=== PATIENT | female | born 1955 | race Caucasian/White ===

== ENCOUNTER 2020-03-17 06:40 | Day surgery (SDC) | payer MEDICARE ==
[~2020-03-17] VITALS: Ht 162.6 cm; Wt 86.4 kg
[~2020-03-17 06:40] MED LIST: SODIUM CHLORIDE 0.9% 1,000 ML ONE
[2020-03-17] MEDS ORDERED: LIDOCAINE 4% 50 ML SOLUTION TP ONE (06:41)
[2020-03-17] MEDS ORDERED: BENZOCAINE 20% 50 MCG/SPRAY 57 GM TP ONE (06:41)
[2020-03-17] MEDS ORDERED: SODIUM CHLORIDE 0.9% 1,000 ML IV ONE (07:00)
[2020-03-17] MEDS ORDERED: ATOR40TA28 PO (07:51)
[2020-03-17] MEDS ORDERED: OMEP20 PO (07:51)
[2020-03-17] MEDS ORDERED: CETI-450 PO (07:51)
[2020-03-17] MEDS ORDERED: MIDAZOLAM HCL 2 MG/2 ML VIAL ONE (08:07)
[2020-03-17] MEDS ORDERED: FentaNYL CITRATE-PF 100 MCG/2 ML VIAL ONE (08:08)
[2020-03-17] MEDS ORDERED: MethylPREDNISolone SOD SUCC 125 MG/2 ML VIAL IVP ONE (08:45)
[2020-03-17] MEDS ORDERED: MethylPREDNISolone SOD SUCC 125 MG/2 ML VIAL ONE (09:11)
[2020-03-17] MEDS ORDERED: OXYGEN THERAPY IH SCH (20:00)
== END 2020-03-17 10:45 | disposition home or self-care (01) ==
LOC: SURGERY 06:40
PROVIDERS: ATTEND Internal Medicine Critical Care Medicine
DX: R05 Cough (principal); R91.1 Solitary pulmonary nodule; J34.89 Other specified disorders of nose and nasal sinuses; J98.8 Other specified respiratory disorders; J38.4 Edema of larynx; B37.0 Candidal stomatitis; K21.9 Gastro-esophageal reflux disease without esophagitis; I10 Essential (primary) hypertension; M19.90 Unspecified osteoarthritis, unspecified site; E78.00 Pure hypercholesterolemia, unspecified; J43.9 Emphysema, unspecified; Z86.19 Personal history of other infectious and parasitic diseases; Z79.899 Other long term (current) drug therapy; Z87.891 Personal history of nicotine dependence; Z11.59 Encounter for screening for other viral diseases
CPT/HCPCS: 31623; 31624; 71045; 87015; 87070; 87101; 87205; 87206; 87220; 87635; 88112; 88312; 93005; J2250; J2930; J3010; J7030

== ENCOUNTER 2022-03-22 06:41 | Day surgery (SDC) | payer MEDICAID ==
[~2022-03-22] VITALS: Ht 162.6 cm; Wt 86.3 kg
[~2022-03-22 06:41] MED LIST changes: +ATOR40TA28 PO; +CETI-450 PO; +OMEP20 PO
[2022-03-22] MEDS ORDERED: ALBUTEROL SULFATE 2.5 MG/0.5 ML NEB SOLUTION NEB ONE (06:42)
[2022-03-22] MEDS ORDERED: LIDOCAINE 2% 5 ML JELLY TP ONE (06:42)
[2022-03-22] MEDS ORDERED: LIDOCAINE 4% 50 ML SOLUTION TP ONE (06:42)
[2022-03-22] MEDS ORDERED: BENZOCAINE 20% 50 MCG/SPRAY 57 GM TP ONE (06:42)
[2022-03-22] MEDS ORDERED: SODIUM CHLORIDE 0.9% 1,000 ML IV ONE (07:00)
[2022-03-22 07:19] LABS: COVID AG,FIA SOURCE NASAL SWAB
[2022-03-22] MEDS ORDERED: ALLO-97 PO (07:58)
[2022-03-22] MEDS ORDERED: CETI-450 PO (07:59)
[2022-03-22] MEDS ORDERED: LEVO25TA9 PO (08:00)
[2022-03-22] MEDS ORDERED: DULO-114 PO (08:00)
[2022-03-22] MEDS ORDERED: CHOL500013 PO (08:01)
[2022-03-22] MEDS ORDERED: ATOR40TA28 PO (08:02)
[2022-03-22] MEDS ORDERED: HYDR200T38 PO (08:03)
[2022-03-22] MEDS ORDERED: EZET10TA57 PO (08:04)
[2022-03-22] MEDS ORDERED: OMEP20 PO (08:05)
[2022-03-22] MEDS ORDERED: MONT-35 PO (08:05)
[2022-03-22] MEDS ORDERED: TRAZ-257 PO (08:06)
[2022-03-22] MEDS ORDERED: FentaNYL CITRATE PF 100 MCG/2 ML VIAL ONE (08:30)
[2022-03-22] MEDS ORDERED: MIDAZOLAM HCL 5 MG/ML VIAL ONE (08:30)
[2022-03-22] MEDS ORDERED: MethylPREDNISolone SOD SUCC 125 MG/2 ML VIAL IVP ONE (09:30)
[2022-03-22] MEDS ORDERED: MethylPREDNISolone SOD SUCC 125 MG/2 ML VIAL ONE (10:08)
[2022-03-22] MEDS ORDERED: OXYGEN THERAPY IH SCH (20:00)
== END 2022-03-22 11:30 | disposition home or self-care (01) ==
LOC: SURGERY 06:41
PROVIDERS: ATTEND Internal Medicine Critical Care Medicine
DX: J38.4 Edema of larynx (principal); B37.0 Candidal stomatitis; G47.30 Sleep apnea, unspecified; J43.9 Emphysema, unspecified; M06.9 Rheumatoid arthritis, unspecified; E78.00 Pure hypercholesterolemia, unspecified; K21.9 Gastro-esophageal reflux disease without esophagitis; I10 Essential (primary) hypertension; Z87.891 Personal history of nicotine dependence; Z72.89 Other problems related to lifestyle; Z98.890 Other specified postprocedural states; Z79.899 Other long term (current) drug therapy
CPT/HCPCS: 31623; 31624; 71045; 87015; 87070; 87101; 87206; 87220; 87426; C9803; J2250; J2930; J3010; J7030; 88108; 88184; 88185; 88305; J7613; Z7610